=== PATIENT | female | born 1970 | race Hispanic/Latino ===

== ENCOUNTER 2019-07-24 21:07 | Inpatient (IN) | payer BC | END 2019-07-27 14:33 | disposition home or self-care (01) | LOC: EDH 21:07 → 3CH 07-25 02:30 → 3DH 07-26 09:29 → EDHIP 22:36 → 3BH 07-25 16:01 | PROC: BT1F1ZZ Fluoroscopy of Left Kidney, Ureter and Bladder using Low Osmolar Contrast (ICD-10-PCS; principal; 2019-07-26 18:14) | PROC: 0T778DZ Dilation of Left Ureter with Intraluminal Device, Via Natural or Artificial Opening Endoscopic (ICD-10-PCS; 2019-07-26 18:14) | DX: N13.6 Pyonephrosis (principal); K57.30 Diverticulosis of large intestine without perforation or abscess without bleeding ==

== ENCOUNTER 2019-08-03 06:03 | Day surgery (SDC) | payer BC ==
[2019-08-02 17:18] VITALS: BP 121/69
[2019-08-03] VITALS (16 sets, daily range): BP systolic 118–130; BP diastolic 60–78
[~2019-08-03] VITALS: Ht 152.4 cm; Wt 60.4 kg
[2019-08-03] MEDS: CEFTRIAXONE SODIUM 1 GM IVP SCH ×2 (06:00→07:40)
[~2019-08-03 06:03] MED LIST: OXYB5TAB10 PO
[2019-08-03] MEDS ORDERED: LACTATED RINGERS 1000ML 1,000 ML IV ONE (06:35)
[2019-08-03] MEDS ORDERED: PROPOFOL 10 MG/ML 20ML VIAL IV ONE (07:19)
[2019-08-03] MEDS ORDERED: FENTANYL CITRATE PF 50 MCG/1 ML 2ML VIAL ONE (07:19)
[2019-08-03] MEDS ORDERED: LIDOCAINE PF 2% 5ML ABBOJECT ONE (07:19)
[2019-08-03] MEDS ORDERED: MIDAZOLAM HCL 1 MG/ML 2ML VIAL ONE (07:33)
[2019-08-03] MEDS ORDERED: GLYCOPYRROLATE 1 MG/5 ML SYRINGE ONE (07:51)
[2019-08-03] MEDS ORDERED: SODIUM CHLORIDE 0.9% 10 ML VIAL ONE (08:00)
[2019-08-03] MEDS ORDERED: PHENYLEPHRINE HCL 10 MG/ML 1ML VIAL IV ONE (08:00)
[2019-08-03] MEDS ORDERED: ONDANSETRON HCL 4 MG/2 ML VIAL ONE (08:43)
[2019-08-03] MEDS ORDERED: KETOROLAC TROMETHAMINE 30MG/ML ONE (08:43)
[2019-08-03] MEDS ORDERED: PHENAZOPYRIDINE HCL 200 MG TABLET ONE (09:44)
== END 2019-08-03 10:33 | disposition home or self-care (01) ==
LOC: DAH 06:03
PROVIDERS: ATTEND Urology
DX: N20.0 Calculus of kidney (principal); N32.81 Overactive bladder; K21.9 Gastro-esophageal reflux disease without esophagitis; G43.909 Migraine, unspecified, not intractable, without status migrainosus; Z98.890 Other specified postprocedural states; Z88.2 Allergy status to sulfonamides; Z88.5 Allergy status to narcotic agent; Z79.899 Other long term (current) drug therapy; Z88.1 Allergy status to other antibiotic agents; Z72.89 Other problems related to lifestyle; Z82.49 Family history of ischemic heart disease and other diseases of the circulatory system
CPT/HCPCS: 50590; 52310; A4215; A4221; A4222; A4223; A4358; A4510 ×2; A4663; A6260; J0696; J1885; J2001; J2250; J2370; J2405; J2704; J3010; J3490; J7120 ×2

== ENCOUNTER 2020-10-27 11:10 | Day surgery (SDC) | payer BC ==
[2020-10-24 10:02] VITALS: BP 139/75
[2020-10-27] VITALS (12 sets, daily range): BP systolic 110–137; BP diastolic 58–80
[~2020-10-27] VITALS: Ht 149.9 cm; Wt 60.1 kg
[~2020-10-27 11:10] MED LIST changes: +ALBU2.5V2 IH; +CEFTRIAXONE SODIUM 1 GM IVP SCH; -OXYB5TAB10 PO; +PHARMACY COMMUNICATION MISC SCH
[2020-10-27] MEDS ORDERED: LACTATED RINGERS 1000ML 1,000 ML IV ONE ×2 (12:29→12:42)
[2020-10-27] MEDS ORDERED: SCOPOLAMINE HYDROBROMIDE 1 EACH ADH..PATCH TD ONE (17:27)
[2020-10-27] MEDS ORDERED: SUCCINYLCHOLINE 200MG/10ML SYR ONE (17:39)
[2020-10-27] MEDS ORDERED: DEXAMETHASONE SOD PHOSPHATE 10MG/ML 1ML VIAL ONE (17:39)
[2020-10-27] MEDS ORDERED: LIDOCAINE PF 2% 5ML ABBOJECT ONE (17:39)
[2020-10-27] MEDS ORDERED: MIDAZOLAM HCL 1 MG/ML 2ML VIAL ONE (17:40)
[2020-10-27] MEDS ORDERED: GLYCOPYRROLATE 1 MG/5 ML SYRINGE ONE (17:40)
[2020-10-27] MEDS ORDERED: NEOSTIGMINE 5MG/5ML SYR IV ONE (17:40)
[2020-10-27] MEDS ORDERED: ONDANSETRON HCL 4 MG/2 ML VIAL ONE (17:40)
[2020-10-27] MEDS ORDERED: PROPOFOL 10 MG/ML 20ML VIAL IV ONE (17:40)
[2020-10-27] MEDS ORDERED: ROCURONIUM 10MG/1ML SYR 10 MG/ML ML ONE (17:40)
[2020-10-27] MEDS ORDERED: FENTANYL CITRATE PF 50 MCG/1 ML 2ML VIAL ONE (17:41)
[2020-10-27] MEDS ORDERED: NALOXONE HCL 0.4 MG/1 ML ML ONE (17:53)
== END 2020-10-27 20:59 | disposition home or self-care (01) ==
LOC: DAH 11:10
PROVIDERS: ATTEND Urology
DX: N20.0 Calculus of kidney (principal); Z20.828 Contact with and (suspected) exposure to other viral communicable diseases; K21.9 Gastro-esophageal reflux disease without esophagitis; G43.909 Migraine, unspecified, not intractable, without status migrainosus; J45.909 Unspecified asthma, uncomplicated; Z98.890 Other specified postprocedural states; Z88.2 Allergy status to sulfonamides; Z87.19 Personal history of other diseases of the digestive system; Z90.722 Acquired absence of ovaries, bilateral; Z90.710 Acquired absence of both cervix and uterus; Z79.899 Other long term (current) drug therapy; Z88.8 Allergy status to other drugs, medicaments and biological substances
CPT/HCPCS: 50590; A4215; A4221; A4222; A4223; A4649; A4663; A6260; C9803; J0330; J0696; J1100; J2001; J2250; J2310; J2405; J2704; J2710; J3010; J3490; J7120 ×3; U0003

== ENCOUNTER 2022-02-04 13:14 | Emergency (ER) | payer BC ==
[~2022-02-04] VITALS: Ht 152.4 cm; Wt 59.0 kg
[~2022-02-04 13:14] MED LIST changes: -CEFTRIAXONE SODIUM 1 GM IVP SCH; -PHARMACY COMMUNICATION MISC SCH
[2022-02-04] MEDS ORDERED: KETOROLAC 30MG VIAL (30MG/ML) IV SCH (14:00)
[2022-02-04] MEDS ORDERED: 0.9%NACL 1000ML 1,000 ML IV SCH (14:00)
[2022-02-04 14:13] LABS: BASOPHILS % (AUTO) 0.2 % (0.0-5.0); EOSINOPHILS % (AUTO) 0.2 % (0.0-8.0); HEMATOCRIT 45.4 % (36-48); LYMPHOCYTES % (AUTO) 13.4 % (21.0-51.0); MEAN CORPUSCULAR HEMOGLOBIN 31.2 pg (27.0-33.0); MEAN CORPUSCULAR HGB CONC 31.5 g/dL (32.0-36.0); MEAN CORPUSCULAR VOLUME 99.1 fL (79-99); MONOCYTES % (AUTO) 6.8 % (3.0-13.0); NEUTROPHILS % (AUTO) 79.1 % (40.0-77.0); PLATELET COUNT (AUTO) 218 K/uL (130-400); RED BLOOD CELL COUNT(AUTO) 4.58 MIL/uL (4.00-5.50); RED CELL DISTRIBUTION WIDTH 13.2 % (11.0-15.5); WHITE BLOOD COUNT (AUTO) 8.9 K/uL (4.8-10.8)
[2022-02-04 14:31] LABS: APPEARANCE,URINE CLOUDY (CLEAR); BILIRUBIN,URINE NEGATIVE (NEGATIVE); COLOR,URINE YELLOW (YELLOW); GLUCOSE, URINE (UA) NEGATIVE (NEGATIVE); KETONES,URINE 15 mg/dL (NEGATIVE); LEUKOCYTE ESTERASE ,URINE NEGATIVE (NEGATIVE); NITRATE,URINE NEGATIVE (NEGATIVE); OCCULT BLOOD,URINE LARGE (NEGATIVE); PROTEIN,URINE NEGATIVE (NEGATIVE); UROBILINOGEN,URINE 0.2 mg/dL (0.2-1.0)
[2022-02-04 14:33] LABS: CREATININE 0.6 mg/dL (0.5-1.5); POTASSIUM 4.4 mmol/L (3.5-5.1)
[2022-02-04 14:38] LABS: ALBUMIN 3.6 g/dL (3.5-5.0); BILIRUBIN,TOTAL 0.4 mg/dL (0.2-1.0); TOTAL PROTEIN, SERUM 7.6 g/dL (6.0-8.3)
[2022-02-04 14:44] LABS: BACTERIA,URINE Rare /HPF (None Seen); RBC,URINE 26-50 /HPF (0-1); SQUAMOUS EPITHELIAL CELL,UR Rare /HPF (0-2)
[2022-02-04] MEDS ORDERED: KETO10 PO (15:08)
[2022-02-04] MEDS ORDERED: TAMSULOSIN HCL 0.4 MG CAP.ER.24H ONE (15:08)
[2022-02-04] MEDS ORDERED: CEPH500B PO (15:08)
[2022-02-04] MEDS ORDERED: CEFTRIAXONE 1G VIAL ONE (15:08)
[2022-02-04] MEDS ORDERED: TAMS-1 PO (15:08)
[2022-02-04] MEDS ORDERED: TAMSULOSIN HCL 0.4 MG CAP.ER.24H PO SCH (15:30)
[2022-02-04] MEDS ORDERED: CEFTRIAXONE 1G VIAL IVP SCH (15:30)
[2022-02-04 16:11] VITALS: BP 132/78
== END 2022-02-04 16:12 | disposition home or self-care (01) ==
LOC: EDH 13:14
DX: N20.0 Calculus of kidney (principal); N39.0 Urinary tract infection, site not specified; Z88.2 Allergy status to sulfonamides; Z79.899 Other long term (current) drug therapy; Z90.49 Acquired absence of other specified parts of digestive tract
CPT/HCPCS: 36415; 74176; 80053; 81001; 83605; 84484; 85025; 96361; 96374; 96375; 99284; J0696; J1885; J7030

== ENCOUNTER 2024-01-09 10:23 | Emergency (ER) | payer BC ==
[~2024-01-09] VITALS: Ht 147.3 cm; Wt 62.6 kg
[~2024-01-09 10:23] MED LIST changes: -ALBU2.5V2 IH; +CEPH500B PO
[2024-01-09 10:24] VITALS: BP 173/77; PULSE 82; RESP 16
[2024-01-09 11:59] LABS: BASOPHILS # (AUTO) 0.03 K/uL (0.00-0.20); BASOPHILS % (AUTO) 0.5 % (0.0-5.0); EOSINOPHILS # (AUTO) 0.07 K/uL (0.00-0.70); EOSINOPHILS % (AUTO) 1.2 % (0.0-8.0); HEMATOCRIT 44.7 % (36-48); IMMATURE GRANULOCYTE ABSOLUTE 0.01 K/uL (0-1); LYMPHOCYTES # (AUTO) 1.6 K/uL (1.0-4.8); LYMPHOCYTES % (AUTO) 26.5 % (21.0-51.0); MEAN CORPUSCULAR HEMOGLOBIN 32.1 pg (27.0-33.0); MEAN CORPUSCULAR HGB CONC 33.1 g/dL (32.0-36.0); MONOCYTES # (AUTO) 0.3 K/uL (0.1-1.0); MONOCYTES % (AUTO) 4.8 % (3.0-13.0); NEUTROPHILS % (AUTO) 66.8 % (40.0-77.0); PLATELET COUNT (AUTO) 260 K/uL (130-400); RED BLOOD CELL COUNT(AUTO) 4.61 MIL/uL (4.00-5.50); RED CELL DISTRIBUTION WIDTH 13.7 % (11.0-15.5)
[2024-01-09] MEDS: KETOROLAC 30MG VIAL (30MG/ML) IVP ONE (12:11)
[2024-01-09] MEDS: 0.9%NACL 1000ML 1,000 ML IV ONE (12:12)
[2024-01-09 12:15] LABS: CREATININE 0.7 mg/dL (0.5-1.5); POTASSIUM 4.6 mmol/L (3.5-5.1)
[2024-01-09 12:19] LABS: ALBUMIN 3.8 g/dL (3.5-5.0); BILIRUBIN,TOTAL 0.7 mg/dL (0.2-1.0); TOTAL PROTEIN, SERUM 7.7 g/dL (6.0-8.3)
[2024-01-09] MEDS: TAMSULOSIN HCL 0.4 MG CAP.ER.24H PO ONE (12:52)
[2024-01-09 13:03] LABS: APPEARANCE,URINE CLEAR (CLEAR); BILIRUBIN,URINE NEGATIVE (NEGATIVE); COLOR,URINE LIGHT-YELLOW (YELLOW); GLUCOSE, URINE (UA) NEGATIVE (NEGATIVE); KETONES,URINE NEGATIVE (NEGATIVE); LEUKOCYTE ESTERASE ,URINE NEGATIVE Leu/uL (NEGATIVE); NITRATE,URINE NEGATIVE (NEGATIVE); OCCULT BLOOD,URINE NEGATIVE (NEGATIVE); PH,URINE 6.5 (5.0-8.0); PROTEIN,URINE NEGATIVE (NEGATIVE); UROBILINOGEN,URINE 0.2 mg/dL (0.2-1.0)
[2024-01-09 13:04] LABS: ADD UA MICROSCOPIC NO
[2024-01-09] MEDS ORDERED: ONDA4TAB10 PO (13:27)
[2024-01-09] MEDS ORDERED: TAMS-1 PO (13:27)
[2024-01-09] MEDS ORDERED: IBUP-2070 PO (13:27)
== END 2024-01-09 13:36 | disposition home or self-care (01) ==
LOC: EDH 10:23
DX: N20.0 Calculus of kidney (principal); N20.2 Calculus of kidney with calculus of ureter; Z88.2 Allergy status to sulfonamides; Z90.710 Acquired absence of both cervix and uterus
CPT/HCPCS: 99284; 74176; 96374; 96361; 80053; 83690; 85025; 81003; 36415; J7030; J1885